=== PATIENT | female | born 1950 | race Two or more races ===

== ENCOUNTER 2020-01-21 10:24 | Outpatient (CLI) | payer OTHER ==
[~2020-01-21] VITALS: Ht 154.9 cm; Wt 61.7 kg
[2020-01-21] MEDS ORDERED: FORTAMET1000 MG (10:48)
[2020-01-21] MEDS ORDERED: TENORMIN50 MG (10:49)
[2020-01-21] MEDS ORDERED: ELIQUIS5 MG (10:49)
== END 2020-01-21 18:49 | disposition home or self-care (01) ==
LOC: OFIC 805 10:24
PROVIDERS: ATTEND Otolaryngology
DX: H90.3 Sensorineural hearing loss, bilateral (principal); H61.23 Impacted cerumen, bilateral

== ENCOUNTER → 2020-04-14 | Outpatient (CLI) | payer OTHER ==
[~2020-04-14] MED LIST: ELIQUIS5 MG; FORTAMET1000 MG; TENORMIN50 MG
== END | disposition home or self-care (01) ==
LOC: OFIC 805 02-25 09:00
PROVIDERS: ATTEND Otolaryngology
DX: H90.3 Sensorineural hearing loss, bilateral (principal); H93.13 Tinnitus, bilateral; H92.03 Otalgia, bilateral